=== PATIENT | male | born 1955 | race Caucasian/White ===

== ENCOUNTER 2016-05-18 03:46 | Emergency (ER) | payer OTHER ==
[2016-05-18] MEDS ORDERED: ASPIRIN 325 MG TABLET PO ONE (03:50)
[2016-05-18] MEDS ORDERED: ASPIRIN 81 MG CHEW TAB ONE (03:53)
--- NOTE | 2016-05-18 03:55 | ED Physician Documentation ---
Chest Pain - HISTORIAN Historian: patient - HPI Chief Complaint: Chest Pain Additional Information: 60 yo M here for chest pain. 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 States exactly the same as previous CP with AR. Took 2 nitro at home with no relief. No n/v. Was diaphoretic with onset. Slight SOB. He is a non smoker. Last heart cath was 2 beaulieu ago per his report. All other systems reviewed and negative except per HPI. Timing: sudden onset Last known Well Date: 05/17/16 Last Known Well Time: 02:00 - ROS CONST: none MS/LYMPH: none GI/: none EYES/ENT: none SKIN/ENDO: none NEURO/PSYCH: none - PAST HX AR risk factors: hypertension, hyperlipidemia, cardiac disease, AMI, A-Fib. denies: diabetes Type 2 Neuro deficit: none GI disease: none Lung disease: none Surgeries/Procedures: cardiac cath Allergies/Adverse Reactions: Allergies Allergy/AdvReac Type Severity Reaction Status Date / Time Sulfa (Sulfonamide Allergy Intermediate Hives Verified 05/18/16 04:16 Antibiotics) [Sulfa(Sulfonamide Antibiotics)] Home Medications: Ambulatory Orders Medication Instructions Recorded Henny Allergy 180 mg PO DAILY #60 u2 06/09/12 Omeprazole Magnesium [Prilosec Otc] 20 mg PO DAILY #30 u2 06/09/12 - SOCIAL HX Smoking History: non-smoker Alcohol Use: none Drug Use: none - FAMILY HX Family HX: none - VITAL SIGNS Vital Signs: Vital Signs Temp Pulse Resp BP Pulse Ox 132/78 06/19/12 22:23 - REVIEWED ASSESSMENTS Nursing Assessment Reviewed: Yes Vitals Reviewed: Yes Progress - Progress Progress: called to request transfer to [facility] at approx 0415. Hospitalist request wait for labs. Patient with 10/10 pain unrelieved with nitro, morphine, which was expressed to transfer center. Repeat EKG unchanged. Again called for transfer request at approx 0455. Request CT chest as pain still 10/10 and no step down or ICU beds avail should this be PE, dissection. CT chest negative, called [facility], accept transfer, Dr. Robertson. Awaiting call for bed placement and will transfer after received. Pain down to 4/10. Hemodynamically stable. ED Results Lab/Radiology - Radiology Radiology Impressions: EKG 1: NSR with 1st degree AV block 51bpm, NC 210ms. Otherwise normal intervals. No ectopy. 1/2 block elevation in lead III, no STEMI. T wave inversions in V1/V2, present on comparison from 2015 and unchanged. Incomplete RBBB. EKG 2: unchanged. Sinus 53bpm. CXR: pulm edema - Orders Orders: ED Orders Category Date Time Status CHEST 2 VIEW [CHEST P.A.&LAT 2 VIEWS] [RAD] Stat Exams 05/18/16 03:50 Ordered BMP [BMP] Routine Lab 05/18/16 03:50 Ordered CBC/PLATELET/DIFF Stat Lab 05/18/16 03:50 Ordered TROPONIN I (cTnI) Stat Lab 05/18/16 03:50 Ordered Aspirin Med 05/18/16 03:50 Once 325 mg PO NOW ONE EKG WITH COMPARISON Stat Ther 05/18/16 03:50 Ordered Chest Pain Physical Exam - EXAM General Appearance: moderate distress EENT: ENT inspection normal, pharynx normal Neck: nml inspection. No: lymphadenopathy Respiratory: no resp. distress, chest non-tender, nml breath sounds CVS: no murmur, pulses full, pulses equal, bradycardia Abdomen: soft, no organomegaly, normal bowel sounds, no distension, non-tender Skin: warm/dry, normal color. No: diaphoresis Extremities: non-tender, no edema. No: edema Neuro: oriented X3 Discharge Clincal Impression: Chest pain Qualifiers: Chest pain type: unspecified Qualified Code(s): R07.9 - Chest pain, unspecified Referrals: Sanjay Montero MD [Primary Care Provider] - 2 Days Home Medications: Ambulatory Orders Henny Allergy 180 mg PO DAILY #60 u2 06/09/12 Omeprazole Magnesium [Prilosec Otc] 20 mg PO DAILY #30 u2 06/09/12 Comments: Called back to [facility] @4600, spoke to house sup. Awaiting call back from physician. Dr. Ailyn Tsang, accepts transfer. Condition: Fair Disposition: XFER SHT-TRM HOSP Decision to Admit: NO Decision Time: 04:02
[2016-05-18] MEDS ORDERED: NITROGLYCERIN 0.4MG/HR PATCH TD ONE (04:02)
[2016-05-18] MEDS ORDERED: NITROGLYCERIN 2% 1GM OINT PACKET...G. TD ONE ×2 (04:06→04:08)
[2016-05-18] MEDS ORDERED: MORPHINE SULFATE 4 MG/ML DISP.SYRIN IVP ONE ×2 (04:15→04:35)
[2016-05-18 04:17] LABS: BASOPHILS % 0.4 (0.0-1.5); EOSINOPHILS % 5.3 % (0.0-6.8); LYMPHOCYTES # 1.9 # k/uL (0.6-4.0); MEAN CORPUSCULAR HEMOGLOBIN 25.8 pg (28.0-34.0); MONOCYTES # 0.6 # k/uL (0.0-0.9); MONOCYTES % 5.7 % (0.0-11.0); NEUTROPHILS # 6.6 # k/uL (1.4-7.7)
[2016-05-18] MEDS ORDERED: ONDANSETRON HCL/PF 4 MG/ 2ML VIAL ONE (04:17)
[2016-05-18] MEDS ORDERED: ONDANSETRON HCL/PF 4 MG/ 2ML VIAL IVP ONE (04:18)
[2016-05-18 04:35] LABS: eGFR (African) > 60; eGFR (Non-African) > 60
--- NOTE | 2016-05-18 04:42 | Diagnostic Imaging Report ---
VIJAY LEE [facility] [address] [facility] [address] [place], [place]. [address] Report Submission Date: May 18, 2016 4:09:43 AM ENTRY LEVEL PROJECT COORDINATOR Patient Study Name: RYNE KEENAN Date: May 18, 2016 3:57:35 AM ENTRY LEVEL PROJECT COORDINATOR Modality Type: CR Gender: M Description: CHEST : 51 Institution: [facility] Physician: VIJAY LEE Chest - one-view Clinical history: Chest pain in the midchest region. Findings: Examination of the chest single portable AP view 05/18/2016 0357 hours with no prior films for comparison demonstrates cardiomegaly and aortic atherosclerosis. Monitor leads superimpose the chest. Lungs are hypoventilated but otherwise clear. Impression: 1. Cardiomegaly aortic atherosclerosis. 2. Hypoventilation. Electronically signed on May 18, 2016 4:09:43 AM ENTRY LEVEL PROJECT COORDINATOR by: Pasquale HELMS
[2016-05-18] MEDS ORDERED: methylPREDNISolone SOD SUCC 125 MG/2 ML VIAL IVP ONE (05:09)
[2016-05-18] MEDS ORDERED: diphenhydrAMINE HCL 50 MG/ML VIAL IVP ONE (05:09)
[2016-05-18] MEDS ORDERED: methylPREDNISolone SOD SUCC 125 MG/2 ML VIAL ONE (05:10)
[2016-05-18] MEDS ORDERED: diphenhydrAMINE HCL 50 MG/ML VIAL ONE (05:10)
--- NOTE | 2016-05-18 05:55 | Diagnostic Imaging Report ---
VIJAY LEE HUEY [facility] [address] [facility] [address] [place], [place]. [address] Report Submission Date: May 18, 2016 5:51:34 AM FRESCO ARTIST Patient Study Name: RYNE KEENAN Date: May 18, 2016 5:22:17 AM FRESCO ARTIST Modality Type: CT\SR Gender: M Description: CT CHEST W/ CONTRAST : 51 Institution: [facility] Physician: VIJAY LEE HUEY CT pulmonary angiogram Clinical history: Chest pain. Rule out pulmonary embolus. Contrast administered: 89 ml of Omnipaque. Technique: CT angiography of the chest is performed with intravenous infusion of contrast. Sliding coronal and sagittal MIP reconstructions are performed by the technologist. Findings: There are dependent atelectatic changes in the lungs. There is no coalescent infiltrate or pleural effusion. The heart is enlarged. Vascular calcification is present in the thoracic aorta with extension into the coronary arteries and the origins of the great vessels. There is suboptimal opacification of the pulmonary arteries although contrast is identified in the superior vena cava and the aorta. There is no large or central pulmonary embolus. Motion artifact limits visualization of the smaller vascular structures. Impression: 1. Cardiomegaly. 2. Dependent atelectasis in the lungs. 3. Suboptimal opacification of the pulmonary arteries without large or central pulmonary embolus. Electronically signed on May 18, 2016 5:51:34 AM FRESCO ARTIST by: Pasquale HELMS
[2016-05-18 06:25] VITALS: BP 122/72
== END 2016-05-18 06:20 | disposition short-term general hospital (02) ==
LOC: ED 03:46
DX: R07.9 Chest pain, unspecified (principal); E78.5 Hyperlipidemia, unspecified; I10 Essential (primary) hypertension
CPT/HCPCS: 71010; 71260; 80048; 84484; 85025; 93005; A9270; J1200; J2270; J2405; J2930; Q9966; 99283; S1016

== ENCOUNTER 2016-06-05 18:21 | Emergency (ER) | payer OTHER ==
--- NOTE | 2016-06-05 18:38 | ED Physician Documentation ---
General Adult - HISTORIAN Historian: patient - HPI Chief Complaint: Upper Respiratory Symptoms Onset: days ago (6 days) Timing: worse Severity: moderate Further Comments: yes (Patient started to have some problems with sinusitis again. Has had chronic sinusitis with recurrent infection requiring antibiotic and steroids. Has seen Dr Palmer and was started on clindamycin. Continues to have green drainage and pressure feeling. Has not been able to sleep due to the pressure and drainage. Has been seeing an computer engineer.) - ROS CONST: no problems. denies: fever - PAST HX Past History: hypertension, other (CAD, atrial fib) Allergies/Adverse Reactions: Allergies Allergy/AdvReac Type Severity Reaction Status Date / Time Sulfa (Sulfonamide Allergy Intermediate Hives Verified 06/05/16 18:36 Antibiotics) [Sulfa(Sulfonamide Antibiotics)] Home Medications: Ambulatory Orders Medication Instructions Recorded Henny Allergy 180 mg PO DAILY #60 u2 06/09/12 Omeprazole Magnesium [Prilosec Otc] 20 mg PO DAILY #30 u2 06/09/12 - SOCIAL HX Smoking History: non-smoker Alcohol Use: none Drug Use: none - FAMILY HX Family History: Yes - VITAL SIGNS Vital Signs: Vital Signs Temp Pulse Resp BP Pulse Ox 122/72 05/18/16 06:21 General Adult Physical Exam - PHYSICAL EXAM GENERAL APPEARANCE: mild distress NECK: normal inspection, thyroid normal, supple RESPIRATORY: no resp distress, wheezes, rales, rhonchi CVS: reg rate & rhythm, heart sounds normal, equal pulses ABDOMEN: soft, no organomegaly, normal bowel sounds, no abdominal bruit, no distension SKIN: warm/dry, normal color NEURO: oriented X3, CN's nml as tested, mood/affect nml, cognition normal Discharge Clincal Impression: Sinusitis chronic, ethmoidal Additional Instructions: Continue taking clindamycin. Call me on on Tuesday or before . Continue with current other medications. Follow-up with computer engineer. Home Medications: Ambulatory Orders Henny Allergy 180 mg PO DAILY #60 u2 06/09/12 Omeprazole Magnesium [Prilosec Otc] 20 mg PO DAILY #30 u2 06/09/12 Condition: Critical Disposition: 01 HOME, SELF-CARE Decision to Admit: NO Date of Decison to Admit: 06/05/16 Decision Time: 18:59
[2016-06-05 18:56] VITALS: BP 132/80
[2016-06-05] MEDS ORDERED: DEXAMETHASONE SOD PHOS 4 MG/ML VIAL IM ONE (18:57)
[2016-06-05] MEDS ORDERED: methylPREDNISolone ACETATE 80 MG/ML VIAL IM ONE (18:57)
== END 2016-06-05 19:06 | disposition home or self-care (01) ==
LOC: ED 18:21
DX: J32.2 Chronic ethmoidal sinusitis (principal)
CPT/HCPCS: J1040; J1100; 96372; 99283; 99284

== ENCOUNTER 2016-09-16 09:34 | Outpatient (CLI) | payer OTHER ==
[2016-09-16 10:19] LABS: eGFR (African) > 60; eGFR (Non-African) > 60
== END 2016-09-16 10:00 ==
LOC: LAB 09:34
PROVIDERS: ATTEND Family Medicine
DX: R60.0 Localized edema (principal); E78.5 Hyperlipidemia, unspecified; Z12.5 Encounter for screening for malignant neoplasm of prostate; M25.50 Pain in unspecified joint
CPT/HCPCS: 36415; 80053; 80061; 83880; 84153; 84550; 86431

== ENCOUNTER 2016-10-15 17:45 | Emergency (ER) | payer OTHER ==
--- NOTE | 2016-10-15 18:13 | ED Physician Documentation ---
Upper Extremity Injury - HISTORIAN Historian: patient - HPI Chief Complaint: Upper Extremity Injury Onset: days ago (2 days) Severity: moderate Duration: worse Context: other (unknown) Associated Symptoms: denies: tingling, numbness distally Further Comments: yes (Patient started to have some pain in the left wrist started aobut one week ago, symptoms got better and then started to hurt again. Has been taking medication for gout indomethacin, and colchicine. Pain associated with foot is much better. Reached for door handle today and felt that the wrist locked up. Has been having pain with movement of the wrist since that time. Denies any warmth or redness.) - ROS CONST: recent illness (gout). denies: fever, chills - PAST HX Past History: Rt handed, cardiac disease (gout, chronic sinusitis), other Allergies/Adverse Reactions: Allergies Allergy/AdvReac Type Severity Reaction Status Date / Time Sulfa (Sulfonamide Allergy Intermediate Hives Verified 10/15/16 19:24 Antibiotics) [Sulfa(Sulfonamide Antibiotics)] Home Medications: Ambulatory Orders Medication Instructions Recorded Henny Allergy 180 mg PO DAILY #60 u2 06/09/12 Omeprazole Magnesium [Prilosec Otc] 20 mg PO DAILY #30 u2 06/09/12 - SOCIAL HX Smoking History: non-smoker Alcohol Use: none Drug Use: none - FAMILY HX Family History: no significant history - VITAL SIGNS Vital Signs: Vital Signs Temp Pulse Resp BP Pulse Ox 98.2 F 108 H 16 104/75 92 10/15/16 19:20 10/15/16 19:20 10/15/16 19:20 10/15/16 19:20 10/15/16 19:20 - REVIEWED ASSESSMENTS Nursing Assessment Reviewed: Yes Vitals Reviewed: Yes ED Results Lab/Radiology - Lab Results Lab Results: Lab Results 10/15/16 10/15/16 18:35 18:35 WBC 9.20 K/ul K/ul (4.00-12.00) RBC 5.07 M/ul M/ul (3.90-5.20) Hgb 12.6 g/dL g/dL (12.0-18.0) Hct 39.2 % % (37.0-53.0) MCV 77.3 fl L fl (80.0-100.0) MCH 24.8 pg L pg (28.0-34.0) MCHC 32.1 g/dL g/dL (30.0-36.0) RDW 14.2 % % (11.3-14.3) Plt Count 272 K/mm3 K/mm3 (130-400) Neut % (Auto) 69.8 % % (39.0-79.0) Lymph % (Auto) 18.0 % % (16.0-50.0) Maury % (Auto) 4.9 % % (0.0-11.0) Eos % (Auto) 4.8 % % (0.0-6.8) Baso % (Auto) 0.8 (0.0-1.5) Neut # (Auto) 6.4 # k/uL # k/uL (1.4-7.7) Lymph # (Auto) 1.7 # k/uL # k/uL (0.6-4.0) Maury # (Auto) 0.5 # k/uL # k/uL (0.0-0.9) Eos # (Auto) 0.4 # k/uL # k/uL (0.0-0.6) Baso # (Auto) 0.1 # k/uL # k/uL (0.0-0.5) Reactive Lymphs % 1.7 % % (0.0-5.0) Reactive Lymphs # 0.2 # k/uL # k/uL (0.0-0.8) Sodium 137 mmol/L mmol/L (136-145) Potassium 3.8 mmol/L mmol/L (3.5-5.0) Chloride 102 mmol/L mmol/L (98-110) Carbon Dioxide 26 mmol/L mmol/L (20-32) BUN 13 mg/dL mg/dL (10-26) Creatinine 0.9 mg/dL mg/dL (0.4-1.5) Estimated Creat Clear 72 Est GFR ( Amer) > 60 (60 - ) Est GFR (Non-Af Amer) > 60 (60 - ) Glucose 97 mg/dL mg/dL (70-99) Uric Acid 8.1 mg/dL H mg/dL (2.0-7.8) Calcium 9.6 mg/dL mg/dL (8.5-10.5) Total Bilirubin 0.4 mg/dL mg/dL (0.2-1.2) AST 29 U/L U/L (0-41) ALT 35 U/L U/L (0-45) Alkaline Phosphatase 78 U/L U/L (46-116) Total Protein 7.7 g/dL g/dL (6.0-8.5) Albumin 4.7 g/dL g/dL (3.0-5.5) - Radiology Radiology Impressions: Report Submission Date: Oct 15, 2016 7:08:37 PM CDT Patient Study Name: YRNE KEENAN Date: Oct 15, 2016 6:48:01 PM CDT Modality Type: CR Gender: M Description: UPPER EXTREMITY : 51 Institution: [facility] Physician: SANJAY MONTERO - ER Left wrist, 3 views History: Wrist pain Findings: No fracture, dislocation or abnormal bone production or destruction is identified. Mild degenerative change is present at the distal ulna and 1st carpometacarpal joint. Impression: No acute abnormality. - Orders Orders: ED Orders Category Date Time Status Cock-Up Splint 1T Care 10/15/16 19:05 Active WRIST 3 VIEWS OR MORE [RAD] Stat Exams 10/15/16 Completed CBC/PLATELET/DIFF Routine Lab 10/15/16 18:35 Completed CMP Routine Lab 10/15/16 18:35 Completed URIC ACID Routine Lab 10/15/16 18:35 Completed fentaNYL CITRATE/PF [Duragesic] Med 10/15/16 18:15 Discontinued 50 mcg IM NOW ONE Upper Extremity Injury Physic - Physical Exam General Appearance: alert, mild distress Hand: normal inspection. No: normal ROM Wrist: no evidence of injury, limited ROM, soft tissue tenderness (over the dorsumof the wrist). No: normal ROM (decrease flex and extension due to pain), abrasions, bone tenderness, deformity, ecchymosis Elbow/Forearm: normal inspection, non-tender, no evidence of injury Neuro/Vascular/Tendon: no vascular compromise, motor nml Skin: warm,dry. No: cool Discharge Clincal Impression: Wrist pain Referrals: Sanjay Montero MD [Primary Care Provider] - 2 Days Additional Instructions: Wear wrist splint for the next 5-7 day. Continue taking your medication that you are for your gout. Home Medications: Ambulatory Orders Henny Allergy 180 mg PO DAILY #60 u2 06/09/12 Omeprazole Magnesium [Prilosec Otc] 20 mg PO DAILY #30 u2 06/09/12 Condition: Stable Disposition: 01 HOME, SELF-CARE Decision to Admit: NO Date of Decison to Admit: 10/15/16 Decision Time: 18:59
[2016-10-15] MEDS: fentaNYL CITRATE/PF 100 MCG/ 2ML AMP IM ONE (18:15)
[2016-10-15 18:41] LABS: BASOPHILS % 0.8 (0.0-1.5); EOSINOPHILS % 4.8 % (0.0-6.8); MEAN CORPUSCULAR HEMOGLOBIN 24.8 pg (28.0-34.0); MEAN CORPUSCULAR VOLUME 77.3 fl (80.0-100.0); MONOCYTES % 4.9 % (0.0-11.0); NEUTROPHILS # 6.4 # k/uL (1.4-7.7)
[2016-10-15 18:58] LABS: eGFR (African) > 60; eGFR (Non-African) > 60
--- NOTE | 2016-10-15 19:11 | Diagnostic Imaging Report ---
VICTOR M DOMINGUEZ [facility] [address] [facility].[address] [address] Report Submission Date: Oct 15, 2016 7:08:37 PM CDT Patient Study Name: RYNE KEENAN Date: Oct 15, 2016 6:48:01 PM CDT Modality Type: CR Gender: M Description: UPPER EXTREMITY : 51 Institution: [facility] Physician: VICTOR M DOMINGUEZ Left wrist, 3 views History: Wrist pain Findings: No fracture, dislocation or abnormal bone production or destruction is identified. Mild degenerative change is present at the distal ulna and 1st carpometacarpal joint. Impression: No acute abnormality. Electronically signed on Oct 15, 2016 7:08:37 PM CDT by: Luther HELMS
[2016-10-15 19:23] VITALS: BP 104/75
== END 2016-10-15 19:20 | disposition home or self-care (01) ==
LOC: ED 17:45
DX: M25.532 Pain in left wrist (principal)
CPT/HCPCS: 36415; 73110; 80053; 84550; 85025; J3010; L3908; 96372; 99283

== ENCOUNTER 2016-10-19 10:18 | Outpatient (CLI) | payer OTHER ==
--- NOTE | 2016-10-19 14:26 | Diagnostic Imaging Report ---
VICTOR M DOMINGUEZ [facility] [address] [facility].[address] [address] Report Submission Date: Oct 19, 2016 12:31:47 PM CDT Patient Study Name: RYNE KEENAN Date: Oct 19, 2016 10:57:24 AM CDT Modality Type: CR Gender: M Description: SPINE : 51 Institution: [facility] Physician: VICTOR M DOMINGUEZ Examination: Cervical spine History: Neck discomfort Comparison exams: None available Findings: 6 views of the cervical spine demonstrate normal height and alignment. No anterior compression. Anterior and posterior osteophyte formation. Disc space narrowing C4/C5. Oblique views demonstrate narrowing of the neural foramen at this level. Odontoid is within normal limits. No prevertebral abnormality Impression: Multilevel degenerative changes. No compression deformity. If patient is experiencing neurologic symptoms, consider obtaining MRI. Electronically signed on Oct 19, 2016 12:31:47 PM CDT by: Bulmaro HELMS
== END 2016-10-19 10:20 ==
LOC: RAD 10:18
PROVIDERS: ATTEND Family Medicine
DX: M47.22 Other spondylosis with radiculopathy, cervical region (principal)
CPT/HCPCS: 72050

== ENCOUNTER 2016-12-22 12:44 | Outpatient (CLI) | payer OTHER ==
--- NOTE | 2016-12-22 14:53 | Diagnostic Imaging Report ---
VICTOR M DOMINGUEZ [facility] [address] [facility] [address] [place] [address]. [address] Report Submission Date: Dec 22, 2016 2:11:54 PM CDT Patient Study Name: RYNE KEENAN Date: Dec 22, 2016 12:56:45 PM CDT Modality Type: CT\SR Gender: M Description: CT C-SPINE W/O CONTRAS : 51 Institution: [facility] Physician: VICTOR M DOMINGUEZ Examination: CT cervical spine History: Neck discomfort Comparison exams: None provided Technique: CT cervical spine axial imaging with sagittal and coronal reconstruction Findings: Sagittal reconstruction demonstrates normal height and alignment the cervical vertebral bodies. No anterior compression deformity. Anterior, lateral and posterior osteophytes C4/C5 through C7/T1. Disc space narrowing C4/C5. Coronal reconstruction does not demonstrate locked or perched facets. Atlantoaxial degenerative changes. Axial imaging obtained from the skull base through T1 Lamina and pedicles are intact. No ossific density within the central canal. Dissect degenerative changes. No prevertebral soft tissue abnormality. Impression: Degenerative changes. No acute osseous process. If patient is experiencing neurologic symptoms, recommend obtaining MRI or cervical myelogram to further evaluate. Electronically signed on Dec 22, 2016 2:11:54 PM CDT by: Bulmaro HELMS
== END 2016-12-22 12:45 ==
LOC: RAD 12:44
PROVIDERS: ATTEND Family Medicine
DX: M54.2 Cervicalgia (principal)
CPT/HCPCS: 72125

== ENCOUNTER 2017-03-26 16:24 | Emergency (ER) | payer OTHER ==
[2017-03-26 17:10] LABS: BASOPHILS % 0.5 (0.0-1.5); EOSINOPHILS % 3.7 % (0.0-6.8); MEAN CORPUSCULAR VOLUME 77.3 fl (80.0-100.0); NEUTROPHILS # 12.8 # k/uL (1.4-7.7)
[2017-03-26] MEDS: 0.9 % SODIUM CHLORIDE 1,000 ML IV ONE (17:15)
[2017-03-26 17:23] LABS: eGFR (African) > 60; eGFR (Non-African) > 60
--- NOTE | 2017-03-26 17:25 | ED Physician Documentation ---
Abdominal Pain - HISTORIAN Historian: patient, spouse - HPI Stated Complaint: abdominal pain Chief Complaint: Abdominal Pain Onset: hours Duration: worse Timing: worse Context: denies: out of country travel, bad food, recent trauma Severity: severe Quality: pain Associated Symptoms: loss of appetite Relieved by: nothing Further Comments: yes (61 year old male patient sent in by Dr Montero with worsening abdominal pain and abdominal distention. Patient was seen in ER on for complaints of mid-lower thoracic area, lab and CT abdomen completed. Recent treatment for pneumonia. Today complains of worsening pain, increased distention and no results from 2 fleets enemas and 1 bottle of magnesium citrate.) - ROS CONST: recent illness (Pneumonia) GI/: constipation CVS/RESP: none EYES/ENT: none MS/SKIN/LYMPH: none NEURO/PSYCH: none - SOCIAL HX Smoking History: non-smoker - FAMILY HX Family History: CAD, other (cerbral aneursym, chronic sinusitis, atrial fib, S/ P SBO) - PAST HX Past History: GERD Ischemic Bowel Risk Factors: A-Fib Other History: hyperlipidemia, hypertension, other (GERD) Surgeries/Procedures: cardiac stent, other (sinus surgery, cerebral aneursym clipping, lysis adhesion causing SBO, Abd wall hernia) - REVIEWED ASSESSMENTS Nursing Assessment Reviewed: Yes Vitals Reviewed: Yes <ANDI MARCELO - Last Filed: 03/26/17 19:04> <Otilio Sanabria - Last Filed: 03/26/17 19:43> - PAST HX Home Medications: Ambulatory Orders Medication Instructions Recorded Henny Allergy 180 mg PO DAILY #60 u2 06/09/12 Omeprazole Magnesium [Prilosec Otc] 20 mg PO DAILY #30 u2 06/09/12 Mometasone Furoate [Nasonex] 17 gm NS DAILY 03/10/17 diphenhydrAMINE HCL [Benadryl] 25 mg PO Q6 PRN 03/10/17 Ipratropium/Albuterol Sulfate 3 ml IH QID #60 ampul.neb 03/11/17 [Duoneb] Prednisone 10 mg PO BID #15 tablet 03/11/17 Allergies/Adverse Reactions: Allergies Allergy/AdvReac Type Severity Reaction Status Date / Time Sulfa (Sulfonamide Allergy Intermediate Hives Verified 03/26/17 17:10 Antibiotics) [Sulfa(Sulfonamide Antibiotics)] Iodinated Contrast Media - Allergy Verified 03/26/17 17:10 IV Dye - VITAL SIGNS Vital Signs: Vital Signs Temp Pulse Resp BP Pulse Ox 97.7 F 84 18 179/83 97 03/26/17 17:04 03/26/17 17:04 03/26/17 17:04 03/26/17 17:04 03/26/17 17:04 Progress <ANDI MARCELO - Last Filed: 03/26/17 19:04> <Otilio Sanabria - Last Filed: 03/26/17 19:43> - Progress Progress: [address] results with patient and . Recommended transfer for immediate surgical consult. Patient had previous surgeries at [facility] with Dr Jones. Has only been able to keep down sips of Sprite today, <8 oz. Last Xarelto dose 03/25/17 - PM dose 1820 Call to [facility] (ANDI MARCELO) [facility] would not accept pt. No GI/surg doc available. Will transfer to . Hosp. Dr. Gr. time 1944. (Otilio Sanabria) ED Results Lab/Radiology <ANDI MARCELO - Last Filed: 03/26/17 19:04> <Otilio Sanabria - Last Filed: 03/26/17 19:43> - Lab Results Lab Results: Lab Results 03/26/17 03/26/17 03/26/17 17:05 17:05 17:05 WBC RBC Hgb Hct MCV MCH MCHC RDW Plt Count Neut % (Auto) Lymph % (Auto) Trigg % (Auto) Eos % (Auto) Baso % (Auto) Neut # (Auto) Lymph # (Auto) Trigg # (Auto) Eos # (Auto) Baso # (Auto) Reactive Lymphs % Reactive Lymphs # PT 10.9 Seconds Seconds (9.4-11.6) INR 1.04 (0.9-1.2) APTT 26.3 Seconds Seconds (24.5-32.8) Sodium Potassium Chloride Carbon Dioxide BUN Creatinine Estimated Creat Clear Est GFR ( Amer) Est GFR (Non-Af Amer) Glucose Lactate 2.0 U/L U/L (0.7-2.1) Calcium Total Bilirubin AST ALT Alkaline Phosphatase Total Protein Albumin Lipase 60 U/L U/L (23-300) 03/26/17 03/26/17 17:05 17:05 WBC 15.40 K/ul H K/ul (4.00-12.00) RBC 5.49 M/ul H M/ul (3.90-5.20) Hgb 13.2 g/dL g/dL (12.0-18.0) Hct 42.5 % % (37.0-53.0) MCV 77.3 fl L fl (80.0-100.0) MCH 24.0 pg L pg (28.0-34.0) MCHC 31.0 g/dL g/dL (30.0-36.0) RDW 14.1 % % (11.3-14.3) Plt Count 323 K/mm3 K/mm3 (130-400) Neut % (Auto) 83.1 % H % (39.0-79.0) Lymph % (Auto) 8.7 % L % (16.0-50.0) Trigg % (Auto) 3.0 % % (0.0-11.0) Eos % (Auto) 3.7 % % (0.0-6.8) Baso % (Auto) 0.5 (0.0-1.5) Neut # (Auto) 12.8 # k/uL H # k/uL (1.4-7.7) Lymph # (Auto) 1.3 # k/uL # k/uL (0.6-4.0) Trigg # (Auto) 0.5 # k/uL # k/uL (0.0-0.9) Eos # (Auto) 0.6 # k/uL # k/uL (0.0-0.6) Baso # (Auto) 0.1 # k/uL # k/uL (0.0-0.5) Reactive Lymphs % 1.0 % % (0.0-5.0) Reactive Lymphs # 0.2 # k/uL # k/uL (0.0-0.8) PT INR APTT Sodium 136 mmol/L mmol/L (136-145) Potassium 4.0 mmol/L mmol/L (3.5-5.1) Chloride 97 mmol/L L mmol/L (98-107) Carbon Dioxide 30 mmol/L mmol/L (22-30) BUN 10 mg/dL mg/dL (9-20) Creatinine 0.90 mg/dL mg/dL (0.66-1.25) Estimated Creat Clear 134 Est GFR ( Amer) > 60 (60 - ) Est GFR (Non-Af Amer) > 60 (60 - ) Glucose 116 mg/dL H mg/dL (74-106) Lactate Calcium 9.7 mg/dL mg/dL (8.4-10.2) Total Bilirubin 0.5 mg/dL mg/dL (0.2-1.3) AST 26 U/L U/L (15-46) ALT 45 U/L U/L (13-69) Alkaline Phosphatase 77 U/L U/L (38-126) Total Protein 8.0 g/dL g/dL (6.3-8.2) Albumin 4.2 g/dL g/dL (3.5-5.0) Lipase - Radiology Radiology Impressions: CT abdomen and pelvis without contrast Date of study: March 26, 2017 Comparison: 6 days earlier CLINICAL HISTORY: LEUKOCYTOSIS. INCREASED ABDOMINAL PAIN ON RIGHT SIDE. SURGICAL HISTORY: HERNIA REPAIR. EXAM PERFORMED WITHOUT CONTRAST DUE TO PATIENT IODINE ALLERGY. (Hx) / LEUKOCYTOSIS. INCREASED ABDOMINAL PAIN (DICOM Hx) TECHNIQUE: 5 mm contiguous axial images of the abdomen and pelvis non contrast. FINDINGS: The lung bases are clear. Abdomen: The pancreas and spleen are normal in appearance. There is fatty change in the liver. The gallstones described on the previous CT have migrated into the gallbladder neck or cystic duct. Gallbladder is dilated. Kidneys are normal in size and surface contour. There is no evidence of renal or ureteral calculi identified. No hydronephrosis or perinephric stranding is evident. There is aortoiliac vascular calcification. An umbilical hernia contains only fat.. The small bowel is nondistended. There is no evidence of free air or free fluid. There is lumbar spondylosis. Pelvis: The colon is normal in appearance. The distal ureters and bladder are normal in appearance. There is no evidence of distal ureteral or intravesicular calculi. . There is no evidence of free air or free fluid. The sigmoid colon and rectum are normal. The remaining pelvic structures are within normal limits and the bones of the pelvis are intact. Femoral artery calcification is present. The appendix is normal. IMPRESSION: A gallstone described previously, has migrated into the gallbladder neck or cystic duct. The gallbladder is dilated suspicious for acute cholecystitis Fatty change in the liver Aortoiliac femoral vascular calcifications Electronically signed on Mar 26, 2017 5:49:08 PM SHOP TEACHER by: ANDI Ruiz) - Orders Orders: ED Orders Category Date Time Status Place IV Lock 1T Care 03/26/17 17:[address] ABD & PELVIS W/O CON Stat Exams 03/26/17 Completed BLOOD CULTURE Stat Lab 03/26/17 17:50 Received CBC/PLATELET/DIFF Stat Lab 03/26/17 17:05 Completed CMP Stat Lab 03/26/17 17:05 Completed LACTATE Stat Lab 03/26/17 17:05 Completed LIPASE Stat Lab 03/26/17 17:05 Completed PT-INR Stat Lab 03/26/17 17:05 Completed PTT Stat Lab 03/26/17 17:05 Completed UA W/MICRO IF INDICATED Stat Lab 03/26/17 17:02 Ordered 0.9 % Sodium Chloride [Normal Saline] 1,000 ml Med 03/26/17 17:02 Discontinued IV NOW 0.9 % Sodium Chloride [Sodium Chloride] 100 ml Med 03/26/17 18:19 Discontinued IV .STK-MED Piperacillin Sodium/Tazobactam [Zosyn] Med 03/26/17 18:18 Discontinued 3.375 gm IV .STK-MED ONE Piperacillin Sodium/Tazobactam [Zosyn] 3.375 gm Med 03/26/17 18:15 Ordered 0.9 % Sodium Chloride [Sodium Chloride] 50 ml IV Q6 fentaNYL CITRATE/PF [Duragesic] Med 03/26/17 18:12 Discontinued 50 mcg IVP NOW ONE fentaNYL CITRATE/PF [Duragesic] Med 03/26/17 18:54 Discontinued 50 mcg IVP NOW ONE Abdominal Pain Physical Exam - Physical Exam General Appearance: moderate distress EENT: eye inspection normal, ENT inspection normal, pharynx normal, no signs of dehydration, PAULA, no nystagmus, TM's nml RESPIRATORY: no resp distress, chest non-tender, breath sounds normal CVS: heart sounds normal, equal pulses, no murmur, no gallop, PMI nml, no JVD, no friction rub, irregularly irregular rhy ABDOMEN: tenderness (worse along right quads; positive Colon's), increased BS, distended, guarding SKIN: normal color, warm/dry, NR, INT, PAL, DR EXTREMITIES: non-tender, normal range of motion, no evidence of injury, no edema , J, GAMBLING COUNSELLOR NEURO: oriented X3, CN's nml as tested, motor nml, sensation nml <ANDI MARCELO - Last Filed: 03/26/17 19:04> - Physical Exam Vital Signs: Vital Signs Temp Pulse Resp BP Pulse Ox 97.7 F 84 18 179/83 97 03/26/17 17:04 03/26/17 17:04 03/26/17 17:04 03/26/17 17:04 03/26/17 17:04 Discharge Decision to Admit: NO Decision Time: 18:18 <ANDI MARCELO - Last Filed: 03/26/17 19:04> Decision Time: 19:43 <Otilio Sanabria - Last Filed: 03/26/17 19:43> Clincal Impression: Acute cholecystitis, On continuous oral anticoagulation Atrial fibrillation Qualifiers: Atrial fibrillation type: chronic Qualified Code(s): I48.2 - Chronic atrial fibrillation Referrals: Sanjay Montero MD [Primary Care Provider] - Condition: Fair Disposition: T-ON LICENSE OF [facility]
--- NOTE | 2017-03-26 17:52 | Diagnostic Imaging Report ---
[facility] [address] [facility] [address] [place], [place]. [address] Report Submission Date: Mar 26, 2017 5:49:08 PM EMERGENCY DEPT TECH Patient Study Name: RYNE KEENAN Date: Mar 26, 2017 5:22:30 PM EMERGENCY DEPT TECH Modality Type: CT\SR Gender: M Description: CT ABD & PELVIS W/O CO : 51 Institution: [facility] Physician: ANDI MARCELO (ACCOUNTS SPECIALIST) - ER CT abdomen and pelvis without contrast Date of study: March 26, 2017 Comparison: 6 days earlier CLINICAL HISTORY: LEUKOCYTOSIS. INCREASED ABDOMINAL PAIN ON RIGHT SIDE. SURGICAL HISTORY: HERNIA REPAIR. EXAM PERFORMED WITHOUT CONTRAST DUE TO PATIENT IODINE ALLERGY. (Hx) / LEUKOCYTOSIS. INCREASED ABDOMINAL PAIN (DICOM Hx) TECHNIQUE: 5 mm contiguous axial images of the abdomen and pelvis non contrast. FINDINGS: The lung bases are clear. Abdomen: The pancreas and spleen are normal in appearance. There is fatty change in the liver. The gallstones described on the previous CT have migrated into the gallbladder neck or cystic duct. Gallbladder is dilated. Kidneys are normal in size and surface contour. There is no evidence of renal or ureteral calculi identified. No hydronephrosis or perinephric stranding is evident. There is aortoiliac vascular calcification. An umbilical hernia contains only fat.. The small bowel is nondistended. There is no evidence of free air or free fluid. There is lumbar spondylosis. Pelvis: The colon is normal in appearance. The distal ureters and bladder are normal in appearance. There is no evidence of distal ureteral or intravesicular calculi. . There is no evidence of free air or free fluid. The sigmoid colon and rectum are normal. The remaining pelvic structures are within normal limits and the bones of the pelvis are intact. Femoral artery calcification is present. The appendix is normal. IMPRESSION: A gallstone described previously, has migrated into the gallbladder neck or cystic duct. The gallbladder is dilated suspicious for acute cholecystitis Fatty change in the liver Aortoiliac femoral vascular calcifications Electronically signed on Mar 26, 2017 5:49:08 PM EMERGENCY DEPT TECH by: Lane HELMS
[2017-03-26] MEDS: 0.9 % SODIUM CHLORIDE 100 ML IV ONE (18:22)
[2017-03-26] MEDS: PIPERACILLIN SODIUM/TAZOBACTAM 3.375 GM VIAL IV ONE (18:22)
[2017-03-26] MEDS: fentaNYL CITRATE/PF 100 MCG/ 2ML AMP IVP ONE ×2 (18:35→20:16)
[2017-03-26] MEDS: PIPERACILLIN SODIUM/TAZOBACTAM 3.375 GM in 0.9 % SODIUM CHLORIDE 50 ML IV SCH (18:39)
[2017-03-26 21:15] VITALS: BP 166/72
== END 2017-03-26 20:20 | disposition short-term general hospital (02) ==
LOC: ED 16:24
DX: K81.0 Acute cholecystitis (principal); I48.2 Chronic atrial fibrillation; Z79.01 Long term (current) use of anticoagulants
CPT/HCPCS: 36415; 74176; 80053; 83605; 83690; 85025; 85610; 85730; 87040; J2543; J3010; J7030; 96361; 96374; 96376; 99284; S1016

== ENCOUNTER 2017-06-15 13:52 | Outpatient (CLI) | payer OTHER ==
--- NOTE | 2017-06-15 17:51 | Diagnostic Imaging Report ---
VICTOR M DOMINGUEZ~ [facility] [id number] Count Includes [facility] [address] [place] [address]. [id number] ~ ~ ~ ~ Report Submission Date: Jun 15, 2017 2:57:10 PM CDT Patient ~ Study Name: RYNE KEENAN ~ Date: Jun 15, 2017 2:11:43 PM CDT ~ Modality Type: CT\SR Gender: M ~ Description: CT L SPINE W/O : 51 ~ Institution: [facility] Physician: VICTOR M DOMINGUEZ ~ ~ ~ Examination: CT lumbar spine History: Woke up with LBP & hip pain x 2 weeks (Hx) / LOW BACK PAIN (DICOM Hx) Comparison exams: None available. Technique: CT lumbar spine axial imaging with sagittal and coronal reconstruction Findings: Sagittal reconstruction demonstrates normal height of the lumbar vertebral bodies. No anterior compression deformity. Mild listhesis of L4 on L5. ~ Anterior, posterior, and lateral osteophytes. Disc space narrowing L5/S1. Coronal reconstruction does not demonstrate locked or perched facets. Slight curvature to the left. Atherosclerotic disease involving the abdominal aorta. Axial imaging obtained from T12 through the sacrum. Lamina and pedicles are intact. No ossific density within the central canal. Scattered facet degenerative changes. Central and neuroforaminal narrowing from L2/L3 through L5/S1. No prevertebral soft tissue abnormality. Impression: Multilevel degenerative changes. No evidence for vertebral body compression fracture. If patient is experiencing neurologic symptoms, consider obtaining MRI lumbar spine to further evaluate. ~ Electronically signed on Jun 15, 2017 2:57:10 PM CDT by: Bulmaro HELMS
== END 2017-06-15 13:53 ==
LOC: RAD 13:52
PROVIDERS: ATTEND Family Medicine
DX: M54.5 Low back pain (principal)
CPT/HCPCS: 72131

== ENCOUNTER 2017-08-09 08:34 | Outpatient (CLI) | payer OTHER ==
--- NOTE | 2017-08-09 14:20 | HISTORY AND PHYSICAL REPORT ---
REFERRING PHYSICIAN: Dr. Sanjay Montero Dear Dr. Montero: HISTORY OF PRESENT ILLNESS: I had the opportunity of seeing Nino Lynn today as an outpatient in clinic. As you are aware, Mr. Lynn is a delightful 62-year-old white male with a 2 to 3 month history of left lower extremity pain consistent with radiculitis. 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 He says he does not notice it as much when he is working but standing in one place and over the course of the day, the symptoms get worse. He says his lower leg gets numb. He is developing weakness in his left foot consistent with a foot drop. He denies pain on the right. He denies incontinence of bowel or bladder or symptoms of neurogenic claudication. He had a CT performed which revealed degenerative disease and disc space narrowing at L5-S1 without evidence of severe stenosis. PAST MEDICAL HISTORY: 1. History of nose or sinus problems. 2. Heart attack. 3. Hypertension. 4. Gout. 5. Pain. 6. Atrial fibrillation. PAST SURGICAL HISTORY: 1. Cardiac stents. 2. Cerebral aneurysm. 3. Cholecystectomy. 4. Release of small bowel obstruction. 5. Double hernia repair. 6. Sinus surgery. DAILY MEDICATIONS: 1. Xarelto 20 mg daily. 2. Flomax 0.4 mg daily. 3. Allopurinol 100 mg daily. 4. Digoxin 125 mcg daily. 5. Singulair 10 mg daily. 6. Diltiazem 240 mg daily. 7. Henny 180 mg daily. 8. Prilosec OTC 20 mg daily. 9. Lefor 5/325 mg p.r.n. 10. Allergy injections weekly. ALLERGIES: 1. Ceftin. 2. Sulfa. 3. Levofloxacin. 4. IV dye. SOCIAL HISTORY: He is a former smoker. He quit approximately 20 years ago. He previously drank alcohol. He quit approximately 20 years ago. Denies recreational drug use. He has been for 45 years. 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 FAMILY HISTORY: Father with heart disease. Mother with heart disease. REVIEW OF SYSTEMS: In the last month or so, he reports a weight loss and a sinus infection. Pain is worse with standing and improved with sitting. PHYSICAL EXAMINATION: General: This is a well-developed, well-nourished white male appearing his stated age. Vital Signs: BP: 160/54, P: 85, R: 20, oxygen saturation is 97% on room air. HEENT: Pupils are equal, round, and reactive to light and accommodation. Extraocular movements intact. No facial droop. Neck: There is full range of motion of the cervical spine. No evidence of adenopathy. Thyroid is nontender, not enlarged. Carotids are without bruits. Chest: Clear to auscultation bilaterally. Normal chest excursion. Heart: Regular rate and rhythm without murmur. Abdomen: Benign. Normoactive bowel sounds. Motor/sensory: Intact in the upper and lower extremities. Moves all extremities freely. Extremities: There is 5/5 strength with dorsal flexion of the right foot and 4/ 5 strength in the left foot. There is a markedly positive left straight leg raise. Pain over the L5 dermatomal distribution and numbness over L5 nerve root on the left. Flexion of the hip is 5/5 and equal. Pain at the left sciatic notch. DIAGNOSTIC STUDIES: Mr. Lynn has on a CT a large broad-based L4-L5 posterior disc protrusion which results in bilateral recess stenosis. He otherwise has degenerative disc disease at L5-S1 and at L3-L4 a small disc protrusion on his CT. ASSESSMENT: Left lumbar radiculitis associated with some weakness consistent with radiculopathy. PLAN: At this point, I have recommended treatment with a left L5 epidural steroid injection and could consider an MRI study if necessary. I have talked to Mr. Lynn about the injection and that we need preauthorization and that he has had conservative therapy including non-steroidal antiinflammatories, home exercise stretching and physical therapy, and chiropractic manipulation and he is not improved. We will plan to schedule either on return to [facility] or through our office, depending on the patient's wishes. Dr. Montero, thank you very much for allowing me to take part in the care of this nice gentleman. I appreciate the opportunity to take part in the care of your patients. cc: Dr. Sanjay HELMS
== END 2017-08-09 08:36 ==
LOC: OUT 08:34
PROVIDERS: ATTEND Anesthesiology Pain Medicine
DX: M54.16 Radiculopathy, lumbar region (principal); G89.29 Other chronic pain; I10 Essential (primary) hypertension; I48.91 Unspecified atrial fibrillation; M10.9 Gout, unspecified
CPT/HCPCS: 99213; 99214

== ENCOUNTER 2017-11-13 20:58 | Emergency (ER) | payer OTHER ==
[2017-11-13 22:01] LABS: BASOPHILS % 0.3 (0.0-1.5); EOSINOPHILS % 2.9 % (0.0-6.8); MEAN CORPUSCULAR HEMOGLOBIN 23.2 pg (28.0-34.0); MEAN CORPUSCULAR VOLUME 75.2 fl (80.0-100.0); MONOCYTES % 6.4 % (0.0-11.0); NEUTROPHILS # 4.8 # k/uL (1.4-7.7)
[2017-11-13 22:16] LABS: eGFR (African) > 60; eGFR (Non-African) > 60
--- NOTE | 2017-11-13 22:57 | ED Physician Documentation ---
Chest Pain - HISTORIAN Historian: patient - HPI Stated Complaint: Chest pain Chief Complaint: Chest Pain Onset: other (First episode was ) Timing: better (He did take one Nitro SL at home prior to leaving home ) Duration: none Last known Well Date: 11/09/17 Last Known Well Time: 09:00 Last known Well Code/Unknown Code: Unknown Context: activity Severity: mild Quality: pressure, tightness, other (and a feeling of heavy arms (both) ) Chest Pain Radiation: back Chest Pain Signs/Symptoms: diaphoresis (on with episode but not today ) Worsened By: nothing Relieved By: nothing Further Comments: yes (He states he has had two prior VT's and he had an episode that felt like both previous VT's. He states the pain started in his mid back upper and then the heaviness in both arms along with sweating and nausea with shortness of air. He states after about 1 hour it went away. He s tates this this evening he started to have the pain in his chest. No sweating or shortness of air today but does feel his arms are heavy . He did take 1 Nitro SL and he has no further chest pain.) - ROS CONST: none MS/LYMPH: none GI/: none EYES/ENT: none SKIN/ENDO: none NEURO/PSYCH: none - PAST HX VT risk factors: other (previous VT x 2 ) DVT/PE Risk Factors: none TAD/AAA risk factors: none Neuro deficit: none GI disease: GERD Lung disease: COPD Surgeries/Procedures: cardiac cath Immunizations: UTD Allergies/Adverse Reactions: Allergies Allergy/AdvReac Type Severity Reaction Status Date / Time Sulfa (Sulfonamide Allergy Intermediate Hives Verified 11/13/17 21:18 Antibiotics) [Sulfa(Sulfonamide Antibiotics)] Iodinated Contrast- Oral and Allergy Verified 11/13/17 21:18 IV Dye [Iodinated Contrast Media - IV Dye] Home Medications: Ambulatory Orders Medication Instructions Recorded Henny Allergy 180 mg PO DAILY #60 u2 06/09/12 Mometasone Furoate [Nasonex] 17 gm NS DAILY 03/10/17 Ipratropium/Albuterol Sulfate 3 ml IH QID #60 ampul.neb 03/11/17 [Duoneb] - SOCIAL HX Smoking History: non-smoker Alcohol Use: none Drug Use: none - FAMILY HX Family HX: none - VITAL SIGNS Vital Signs: Vital Signs Temp Pulse Resp BP Pulse Ox 166/72 03/26/17 20:20 - REVIEWED ASSESSMENTS Nursing Assessment Reviewed: Yes Vitals Reviewed: Yes Progress - Progress Progress: 2129: no further chest pain. Denies shortness of air. his arms are feeling less heavy. DG 225: results discussed. He states he has no further symptoms. He is agreeable to discharge. DG ED Results Lab/Radiology - Lab Results Lab Results: Lab Results 11/13/17 11/13/17 11/13/17 21:44 21:44 21:44 WBC 7.10 K/ul K/ul (4.00-12.00) RBC 5.28 M/ul H M/ul (3.90-5.20) Hgb 12.3 g/dL g/dL (12.0-18.0) Hct 39.8 % % (37.0-53.0) MCV 75.2 fl L fl (80.0-100.0) MCH 23.2 pg L pg (28.0-34.0) MCHC 30.8 g/dL g/dL (30.0-36.0) RDW 15.0 % H % (11.3-14.3) Plt Count 280 K/mm3 K/mm3 (130-400) Neut % (Auto) 67.7 % % (39.0-79.0) Lymph % (Auto) 20.8 % % (16.0-50.0) Hamblen % (Auto) 6.4 % % (0.0-11.0) Eos % (Auto) 2.9 % % (0.0-6.8) Baso % (Auto) 0.3 (0.0-1.5) Neut # (Auto) 4.8 # k/uL # k/uL (1.4-7.7) Lymph # (Auto) 1.5 # k/uL # k/uL (0.6-4.0) Hamblen # (Auto) 0.5 # k/uL # k/uL (0.0-0.9) Eos # (Auto) 0.2 # k/uL # k/uL (0.0-0.6) Baso # (Auto) 0.0 # k/uL # k/uL (0.0-0.5) Reactive Lymphs % 1.9 % % (0.0-5.0) Reactive Lymphs # 0.1 # k/uL # k/uL (0.0-0.8) Sodium 137 mmol/L mmol/L (136-145) Potassium 3.8 mmol/L mmol/L (3.5-5.1) Chloride 103 mmol/L mmol/L (98-107) Carbon Dioxide 24 mmol/L mmol/L (22-30) BUN 8 mg/dL L mg/dL (9-20) Creatinine 0.90 mg/dL mg/dL (0.66-1.25) Est GFR ( Amer) > 60 (60 - ) Est GFR (Non-Af Amer) > 60 (60 - ) Glucose 101 mg/dL mg/dL (74-106) Calcium 8.8 mg/dL mg/dL (8.4-10.2) Total Bilirubin < 0.1 mg/dL L mg/dL (0.2-1.3) AST 19 U/L U/L (15-46) ALT 37 U/L U/L (13-69) Alkaline Phosphatase 75 U/L U/L (38-126) Troponin I < 0.03 ng/mL L ng/mL (0.03-0.06) Total Protein 7.2 g/dL g/dL (6.3-8.2) Albumin 4.0 g/dL g/dL (3.5-5.0) - Orders Orders: ED Orders Category Date Time Status Continuous EKG monitoring Q1H Care 11/13/17 21:[address] IV Lock 1T Care 11/13/17 21:11 Active CHEST 1VIEW [RAD] Stat Exams 11/13/17 Taken CBC/PLATELET/DIFF Stat Lab 11/13/17 21:44 Completed CMP Stat Lab 11/13/17 21:44 Completed TROPONIN I (cTnI) Stat Lab 11/13/17 21:44 Completed Oxygen Daily Oxygen 11/13/17 21:15 Ordered Chest Pain Physical Exam - EXAM General Appearance: no acute distress, alert EENT: eye inspection normal, ENT inspection normal Neck: nml inspection Respiratory: no resp. distress, chest non-tender, nml breath sounds CVS: reg. rate & rhythm, no murmur Abdomen: soft, normal bowel sounds, no distension, non-tender Skin: warm/dry, normal color Extremities: non-tender, normal range of motion, no evidence of injury, no edema Neuro: oriented X3, CN's nml as tested, motor nml, sensation nml, mood/affect nml, cognition normal Discharge Clincal Impression: Chest pain Referrals: Sanjay Montero MD [Primary Care Provider] - 2 Days Comments: 1. Continue meds 2. return to ER For any concerns 3. Follow up with PCP in 2-4 days Condition: Stable Disposition: 01 HOME, SELF-CARE Decision to Admit: NO Date of Decison to Admit: 11/13/17 Decision Time: 23:01
[2017-11-14 01:49] VITALS: BP 144/87
--- NOTE | 2017-11-14 06:39 | Diagnostic Imaging Report ---
JORDAN ROSALES [facility] [address] [facility] [address] [place], [place]. [address] Report Submission Date: Nov 13, 2017 10:02:22 PM CDT Patient Study Name: RYNE KEENAN Date: Nov 13, 2017 9:46:14 PM CDT Modality Type: DX Gender: M Description: CHEST : 51 Institution: [facility] Physician: JORDAN ROSALES Chest AP portable Date of Exam: November 13, 2017. History: CHEST PAIN, SHORTNESS OF BREATH (Hx) / ITS.REASON CHEST PAIN SOANA Findings: No comparison studies are provided. There is cardiomegaly. No definite infiltrate or effusion is present. The trachea is midline. A right upper lobe lung granuloma is noted. There is right basilar atelectasis. Impression: Cardiomegaly. Electronically signed on Nov 13, 2017 10:02:22 PM CDT by: Freedom HELMS
== END 2017-11-13 23:15 | disposition home or self-care (01) ==
LOC: ED 20:58
DX: R07.9 Chest pain, unspecified (principal)
CPT/HCPCS: 71045; 80053; 84484; 85025; 99284; S1016

== ENCOUNTER 2017-12-19 10:54 | Outpatient (CLI) | payer OTHER ==
[2017-11-14 01:49] VITALS: BP 144/87
[2017-12-19 12:16] LABS: eGFR (Non-African) > 60
--- NOTE | 2017-12-19 14:35 | Diagnostic Imaging Report ---
VICTOR M DOMINGUEZ [facility] [address] [facility] [address] [address] Report Submission Date: Dec 19, 2017 11:36:00 AM CDT Patient Study Name: RYNE KEENAN Date: Dec 19, 2017 11:00:42 AM CDT Modality Type: DX Gender: M Description: ABDOMEN,CHEST : 51 Institution: [facility] Physician: VICTOR M DOMINGUEZ PA chest and flat and upright abdomen PA chest dated December 19, 2017 is compared with November 13, 2017 The cardiomediastinal silhouette is unchanged in size and configuration. Pulmonary vascularity is normal. Lungs are clear aside from a right upper lobe granuloma. Flat and upright views of the abdomen demonstrate clips from a cholecystectomy. The bowel gas pattern is nonobstructive. No free air is seen. No abnormal calcifications are noted. Impression: Cardiomegaly. No acute cardiopulmonary process. Nonobstructive bowel gas pattern. Electronically signed on Dec 19, 2017 11:36:00 AM CDT by: Apryl HELMS
[2017-12-19 19:31] LABS: BASO % 0.2 % (0.0-1.5); EOS % 0.5 % (0.0-6.8); LYMPH ABS # 2.53 thou/uL (0.60-4.00); MCH. 23.8 pg (28.0-34.0); MCV 75.4 fL (80.0-100.0); MONOCYTE % 5.8 % (0.0-11.0); MONOCYTE ABS # 1.06 thou/uL (0.00-0.90); PLATELET COUNT 330 thou/uL (130-400)
== END 2017-12-19 10:56 ==
LOC: LAB 10:54
PROVIDERS: ATTEND Family Medicine
DX: R10.11 Right upper quadrant pain (principal)
CPT/HCPCS: 36415; 74022; 80053; 83690; 85025

== ENCOUNTER 2018-02-27 14:23 | Outpatient (CLI) | payer OTHER ==
[2017-11-14 01:49] VITALS: BP 144/87
== END 2018-02-27 14:24 ==
LOC: RT 14:23
PROVIDERS: ATTEND Family Medicine
DX: I48.91 Unspecified atrial fibrillation (principal)

== ENCOUNTER 2018-03-09 09:30 | Outpatient (CLI) | payer OTHER ==
[2017-11-14 01:49] VITALS: BP 144/87
[2018-03-09 09:48] LABS: BASOPHILS % 0.2 (0.0-1.5); EOSINOPHILS % 0.9 % (0.0-6.8); MEAN CORPUSCULAR HEMOGLOBIN 23.9 pg (28.0-34.0); MONOCYTES % 4.5 % (0.0-11.0); NEUTROPHILS # 10.6 # k/uL (1.4-7.7)
[2018-03-09 10:10] LABS: eGFR (Non-African) > 60
== END 2018-03-09 14:22 ==
LOC: LAB 09:30
PROVIDERS: ATTEND Family Medicine
DX: R10.33 Periumbilical pain (principal)
CPT/HCPCS: 36415; 80053; 83690; 85025

== ENCOUNTER 2018-03-14 08:39 | Outpatient (CLI) | payer OTHER ==
[2017-11-14 01:49] VITALS: BP 144/87
--- NOTE | 2018-03-14 14:33 | Diagnostic Imaging Report ---
VICTOR M DOMINGUEZ [facility] [address] [facility] [address] [address] Report Submission Date: Mar 14, 2018 10:38:51 AM [employer] Patient Study Name: RYNE KEENAN Date: Mar 14, 2018 8:59:40 AM [employer] Modality Type: CT\SR Gender: M Description: CT ABD PELVIS W/ CON : 51 Institution: [facility] Physician: VICTOR M DOMINGUEZ Examination: CT Abdomen/pelvis History: PERIUMBILICAL ABDOMINAL PAIN Comparison exams: None available Technique: CT Abdomen/pelvis without IV protocol. Findings: Liver demonstrates diffuse low attenuation. No central lesion. Surgical clips in the region of the gallbladder fossa. Spleen, adrenals, pancreas and kidneys are without gross irregularity given exam technique. No suspicious renal calcifications. Ureters are nondilated in their course through the abdomen and pelvis. No central calcifications. Bladder margin within normal limits. Abdominal aorta without aneurysm. Peripheral atherosclerotic disease. Cardiac silhouette is not enlarged. Mild pericardial thickening. No vascular calcifications. Bowel unopacified limiting evaluation. No abnormal dilation. Stool within the large bowel limiting sensitivity. No mesenteric inflammatory changes or free fluid. Appendix is visualized and is without inflammatory changes. Osseous structures demonstrate degenerative disease and mild L4/L5 listhesis. Lung bases demonstrate parenchymal scarring without infiltrate. No effusion. Impression: No acute upper abdominal organ inflammatory process. No abnormal bowel dilation or inflammation. Fatty liver. No suspicious renal calcifications or abnormal ureteric dilation. Lung base scarring. No consolidation or effusion. Electronically signed on Mar 14, 2018 10:38:51 AM [employer]RE [employer] OFFICER by: Bulmaro HELMS
== END 2018-03-14 09:30 ==
LOC: RAD 08:39
PROVIDERS: ATTEND Family Medicine
DX: R10.33 Periumbilical pain (principal)
CPT/HCPCS: 74177; Q9967